=== PATIENT | male | born 1965 | race Two or more races ===

== ENCOUNTER 2019-04-14 07:26 | Emergency (ER) | payer OTHER ==
[2019-04-14 07:35] VITALS: PULSE 70; TEMP 97.6; BMI 31.7
[2019-04-14] MEDS ORDERED: ACETAMINOPHEN 1000 MG/100 ML VIAL (NON FORMULARY) IVPB ONE (08:26)
[2019-04-14] MEDS ORDERED: ACETAMINOPHEN INJECTION 100 ML IVPB ONE (08:26)
[2019-04-14] MEDS ORDERED: morphine CARPU-JECT 4 MG/1 ML DISP.SYRIN IVPUSH ONE (08:26)
[2019-04-14] MEDS ORDERED: SODIUM CHLORIDE 0.9% 1000 ML INFUS.BAG IV ONE (08:26)
[2019-04-14] MEDS ORDERED: morphine SULFATE 4 MG/ML VIAL ONE (08:26)
[2019-04-14] MEDS ORDERED: ONDANSETRON 4 MG/2 ML VIAL IVPUSH ONE (08:37)
[2019-04-14] MEDS ORDERED: ONDANSETRON 4 MG/2 ML VIAL ONE (08:38)
--- NOTE | 2019-04-14 08:43 | PDOC ---
History of Present Illness - General Chief Complaint: Pain, Acute Stated Complaint: ABD PAIN Time Seen by Provider: 04/14/19 08:42 Past History - Past Medical History Allergies/Adverse Reactions: Allergies Allergy/AdvReac Type Severity Reaction Status Date / Time No Known Allergies Allergy Verified 04/14/19 08:24 Home Medications: Ambulatory Orders Ibuprofen [Motrin -] 400 mg PO QID PRN #28 tablet 04/14/19 Oxycodone HCl/Acetaminophen [Percocet 5-325 mg Tablet -] 1 combo PO Q6H PRN #14 tablet MDD 4 04/14/19 Tamsulosin HCl [Flomax] 0.4 mg PO DAILY #7 capsule 04/14/19 COPD: No - Immunization History Immunization Up to Date: No - Psycho Social/Smoking Cessation Hx Smoking History: Never smoked Have you smoked in the past 12 months: No Information on smoking cessation initiated: No Hx Alcohol Use: No Drug/Substance Use Hx: No *Physical Exam - Vital Signs Last Vital Signs Temp Pulse Resp BP Pulse Ox 97.6 F 70 18 134/94 100 04/14/19 07:32 04/14/19 07:32 04/14/19 07:32 04/14/19 07:32 04/14/19 07:32 ED Treatment Course - LABORATORY CBC & Chemistry Diagram: 04/14/19 08:23 04/14/19 08:23 - Medications Given in the ED: ED Medications Discontinued Medications Generic Name Dose Route Start Last Admin Trade Name Freq PRN Reason Stop Dose Admin Acetaminophen 1,000 mg 04/14/19 08:26 04/14/19 08:41 Ofirmev Injection - IVPB 04/14/19 08:27 1,000 mg ONCE ONE Administration Morphine Sulfate 4 mg 04/14/19 08:26 04/14/19 08:41 Morphine Injection - IVPUSH 04/14/19 08:27 4 mg ONCE ONE Administration Ondansetron HCl 4 mg 04/14/19 08:37 04/14/19 08:41 Zofran Injection IVPUSH 04/14/19 08:38 4 mg ONCE ONE Administration Sodium Chloride 1,000 ml 04/14/19 08:26 04/14/19 08:41 Normal Saline - IV 04/14/19 08:27 1,000 ml ONCE ONE Administration Medical Decision Making - Medical Decision Making 04/14/19 10:38 HPI: 53yo M hx L-sided kidney stone (1yr ago, similar sx, passed on own) presents from home for gradual onset at 0500 waxing/waning squeezing-type RUQ pain radiating to R flank, worse with movement, no improvement with 0.5 tab acetaminophen at 0500 today, associated with NBNB emesis x3. LBM this AM, normal. Denies abdominal surgeries, travel, sick contacts, odd foods, hematuria , dysuria, urinary urgency/frequency, penile pain or discharge, testicular pain or swelling, hx gallstones, fever, chills, fatigue, headache, dizziness, numbness/tingling, weakness, vision changes, shortness of breath, cough, chest pain, palpitations, leg swelling, blood in stool, diarrhea, constipation, confusion. ROS: Constitutional: Negative for chills, fever, fatigue, diaphoresis. HENT: Negative for sore throat, rhinorrhea, congestion. Eyes: Negative for visual disturbance. Respiratory: Negative for shortness of breath, cough, and wheezing. Cardiovascular: Negative for chest pain, palpitations, and leg swelling. Gastrointestinal: Positive for abdominal pain, nausea, and vomiting. Negative for blood in stool, constipation, diarrhea. Genitourinary: Positive for flank pain. Negative for dysuria, and hematuria. Musculoskeletal: Negative for myalgias, back pain, and neck pain. Skin: Negative for rash. Neurological: Negative for light-headedness, dizziness, vertigo, syncope, weakness, numbness and headaches. Psychiatric/Behavioral: Negative for behavioral problems and confusion. PE: Gen: Alert, NAD, uncomfortable-appearing. HEENT: PERRL, EOMI, MMM, NCAT. No conjunctival pallor. Sclera are non-icteric. Oropharynx is clear. CV: Regular rate and rhythm. No murmurs, rubs, or gallops. PULM: No resp distress. CTAB, no wheezes, rales, or rhonchi. ABD: soft, ND, +RUQ TTP, no rebound tenderness or guarding, +R CVA tenderness. BACK: No TTP of c/t/l-spine. No step-offs or deformities. MSK: No bony deformities. 2+ pulses in all extremities. NEURO: AAOx3. PERRL. No gross CN deficits. Strength and sensation grossly intact throughout. EXTREMITIES: No cyanosis. No clubbing. No edema. No calf tenderness. PSYCH: Normal mood and thought pattern. SKIN: Warm and dry. Normal capillary refill. No rashes. No jaundice. MDM: 53yo M hx L-sided kidney stone (1yr ago, similar sx, passed on own) presents from home for gradual onset at 0500 waxing/waning squeezing-type RUQ pain radiating to R flank, worse with movement, no improvement with 0.5 tab acetaminophen at 0500 today, associated with NBNB emesis x3. Hemodynamically stable, afebrile, RUQ and R CVA tenderness. Ddx: kidney stone or infected kidney stone most likely. GB pathology ( cholelithiasis/cystitis, cholangitis) less likely due to presentation and hx stones - consider RUQ US if CT spiral negative. Also consider UTI/pyelo, metabolic derangement, ACS/SD, anemia. Very low concern for GI or testicular pathology at this time due to presentation consistency with renal pathology; if w/u equivocal, reassess and consider further imaging. -EKG: reviewed, NSR, 68bpm, LAD, VT interval 160ms, QTc 442ms, IRBBB, no e/o acute ischemia -Labs: reviewed, notable for K 3.1 --give Kdur 40 -CT spiral: reviewed, obstructing stone at R mid ureter level 4x3.5mm resulting in mild to moderate R ureter hydronephrosis and hydroureter down to level of stone. -IVF -Pain management -Dispo: pending w/u 04/14/19 14:30 UA negative for UTI Pain resolved s/p pain meds Pt informed of stone and discussed plan and return precautions. Will discharge home with urology and PCP f/u. Return precautions given. Pt understands all discharge instructions and all questions were answered. Discharge - Discharge Information Problems reviewed: Yes Clinical Impression/Diagnosis: Hypokalemia, Kidney stone on right side Condition: Improved Disposition: HOME - Admission No - Additional Discharge Information Prescriptions: Ibuprofen [Motrin -] 400 mg PO QID PRN #28 tablet PRN Reason: Pain Oxycodone HCl/Acetaminophen [Percocet 5-325 mg Tablet -] 1 combo PO Q6H PRN #14 tablet MDD 4 PRN Reason: Pain Tamsulosin HCl [Flomax] 0.4 mg PO DAILY #7 capsule - Follow up/Referral Referrals: Travis Peres MD [Staff Physician] - [facility] [Provider Group] - Patient Discharge Instructions Patient Printed Discharge Instructions: DI for Kidney Stones, DI for Hypokalemia Additional Instructions: Thelma laboratorios, exmenes y tomografas computarizadas muestran que tiene un pequeo clculo renal en el lado derecho. Las piedras de lyssa tamao generalmente pasan solas en la orina, aunque generalmente son dolorosas a medida que pasan. Debary ibuprofeno sinai se indica en la botella segn sea necesario para el dolor. Si kumar tomado el mximo de ibuprofeno radha da y todava tiene dolor, puede zurdo un percocet segn lo prescrito segn sea necesario. Tambin le hemos recetado Flomax para ayudar a orinar y pasar el clculo, tmelo sinai se lo recetaron. Le hemos derivado a un urlogo. Llame a araujo oficina para hacer kamron daniel para esta semana. Tambin le hemos derivado a kamron clnica de atencin primaria. Tiene bajo contenido de potasio (un electrolito) en thelma laboratorios. [place] no es kamron emergencia, shun araujo mdico de atencin primaria debe evaluarlo ms a fondo. Llame a la clnica para programar kamron daniel esta semana. Regrese al Departamento de Emergencias de inmediato por cualquier sntoma nuevo o preocupante, sinai empeoramiento del dolor, vmitos, fiebre o incapacidad para orinar. Your labs, exam, and CT scan show that you have a small right-sided kidney stone. Stones of this size usually pass on their own in the urine, though it is usually painful as it passes. Take ibuprofen as directed on the bottle as needed for pain. If you have taken the maximum ibuprofen that day and you still have pain, you can take a percocet as prescribed as needed. We have also prescribed you Flomax to help urinate and pass the stone - take as prescribed. We have given you a referral to a Urologist. Call their office to make an appointment for this week. We have also given you a referral to a primary care clinic. You have low potassium (an electrolyte) on your labs. This is not an emergency but should be further evaluated by your primary care doctor. Call the clinic to set up an appointment this week. Return to the Emergency Department immediately for any new or concerning symptoms including worsening pain, vomiting, fever, or inability to urinate. - Post Discharge Activity
[2019-04-14] MEDS ORDERED: KETOROLAC TROMETHAMINE 15 MG/ML VIAL IVPUSH ONE (08:59)
--- NOTE | 2019-04-14 09:09 | PDOC ---
Attending Attestation - Resident Resident Name: Shahla Langford - ED Attending Attestation I have performed the following: I have examined & evaluated the patient, The case was reviewed & discussed with the resident, I agree w/resident's findings & plan, Exceptions are as noted - HPI HPI: 04/14/19 09:14 53y M presents with R sided abdominal pain since this morning, patient notes that the pain is very severe is located in the right side rating down to the right groin associated with nausea and vomiting. The patient denies any other symptoms including fever, chills, dysuria, diarrhea, back pain, chest pain, shortness of breath. The patient does not recall having such severe pain in the past. The patient denies any explicit testicular tenderness. - Physicial Exam PE: 04/14/19 09:18 GENERAL: The patient is awake, alert, and fully oriented, appears to be very uncomfortable, writhing around HEAD: Normocephalic, atraumatic. EYES: extraocular movements intact, sclera anicteric, conjunctiva clear. ENT: Normal voice, Moist mucous membranes. NECK: Normal range of motion, supple LUNGS: Breath sounds equal, clear to auscultation bilaterally. No wheezes, no rhonchi, no rales. HEART: Regular rate and rhythm, normal S1 and S2 without murmur, rub or gallop. ABDOMEN: Soft, mild diffuse tenderness in the right abdomen (R mid abd to lower abd), no hernias appreciated, : No testicular tenderness or swelling, EXTREMITIES: Normal range of motion, no edema. NEUROLOGICAL: No facial assymetry, Normal speech, moving all 4 extremities spontaneously symmetrically PSYCH: Normal mood, normal affect. SKIN: Warm, Dry, normal turgor, - Medical Decision Making 04/14/19 09:19 Differential for the patient's symptoms includes but is not limited to kidney stone, appendicitis, cholecystitis Will obtain labs, urine Patient was given Tylenol and Toradol for pain, Zofran for nausea anticipate CT of abdomen 04/14/19 12:19 The patient's labs were reviewed potassium noted to be 3.1 will replete with oral potassium. The patient CT noted for a moderate sized kidney stone in the right ureter since that with the patient's location of pain. Will reassess the patient, also awaiting a UA to rule out UTI/infected stone 04/14/19 15:19 UA neg for infected stone pt was dc with outaptient urology fu return precautions were discusesed includnig persistent pain, fevers, vomiting or other concerns
[2019-04-14 09:12] LABS: BASO % 0.5 % (0-2.0); EOS % 1.3 % (0-4.5); HEMOGLOBIN 14.4 GM/dL (11.7-16.9); LYMPH % 13.4 % (8-40); MCH 28.1 pg (25.7-33.7); MCHC 34.2 g/dl (32.0-35.9); MEAN CELL VOLUME 82.2 fl (80-96); MEAN PLT VOLUME 9.5 fl (7.5-11.1); MONO % 4.8 % (3.8-10.2); PLATELET COUNT 245 K/MM3 (134-434); RBC 5.11 M/mm3 (4.00-5.60); RDW 13.3 % (11.9-15.9); WHITE BLOOD COUNT 13.7 K/mm3 (4.0-10.0)
[2019-04-14] MEDS ORDERED: SODIUM CHLORIDE 0.9% 500 ML INFUS.BAG IV ONE (09:24)
[2019-04-14] MEDS ORDERED: KETOROLAC TROMETHAMINE 15 MG/ML VIAL ONE (09:36)
[2019-04-14 09:37] LABS: ALBUMIN 4.2 g/dl (3.4-5.0); ALK PHOS 112 U/L (45-117); ANION GAP 11 MMOL/L (8-16); BILIRUBIN,TOTAL 0.3 mg/dL (0.2-1); BLOOD UREA NITROGEN 17.9 mg/dL (7-18); CALCIUM 9.4 mg/dL (8.5-10.1); CHLORIDE 108 mmol/L (98-107); CO2 21 mmol/L (21-32); CREATININE 1.2 mg/dL (0.55-1.3); GLUCOSE,RANDOM 118 mg/dL (74-106); POTASSIUM 3.1 mmol/L (3.5-5.1); SGOT/AST 25 U/L (15-37); SGPT/ALT 64 U/L (13-61); SODIUM 140 mmol/L (136-145); TOT PROT 7.8 g/dl (6.4-8.2)
--- NOTE | 2019-04-14 10:02 | EKG ---
Test Reason : Blood Pressure : / mmHG Vent. Rate : 068 BPM Atrial Rate : 068 BPM P-R Int : 160 ms QRS Dur : 112 ms QT Int : 416 ms P-R-T Axes : 015 -50 003 degrees QTc Int : 442 ms NORMAL SINUS RHYTHM LEFT AXIS DEVIATION INCOMPLETE RIGHT BUNDLE BRANCH BLOCK INFERIOR INFARCT , AGE UNDETERMINED ABNORMAL ECG NO PREVIOUS ECGS AVAILABLE Confirmed by Mary Schulz ([id number]) on 04/14/2019 10:02:25 AM Referred By: Confirmed By:Mary Schulz
[2019-04-14] MEDS ORDERED: POTASSIUM CHLORIDE TABS 20 MEQ TABLET.ER (FP) PO ONE ×2 (10:36→11:00)
[2019-04-14 13:25] LABS: EPI CELLS 4.1 /HPF (0-5/HPF); HYALINE CASTS 7 /lpf (0-8); PH,URINE 7.5 (5.0-8.0); URINE APPEARANCE CLEAR; URINE BACTERIA 0.5 /hpf (NEGATIVE); URINE BILIRUBIN NEGATIVE (NEGATIVE); URINE COLOR YELLOW; URINE GLUCOSE (UA) 1+ (NEGATIVE); URINE KETONE NEGATIVE (NEGATIVE); URINE LEUK ESTERASE NEGATIVE (NEGATIVE); URINE NITRITE NEGATIVE (NEGATIVE); URINE PROTEIN NEGATIVE (NEGATIVE); URINE RBC 70 /hpf (0-4); URINE UROBILINOGEN 0.2 mg/dL (0.2-1.0); URINE WBC 3 /hpf (0-5)
[2019-04-14 14:48] VITALS: BP 130/92
== END 2019-04-14 15:05 | disposition home or self-care (01) ==
LOC: JER 07:26
PROC: 3E033NZ Introduction of Analgesics, Hypnotics, Sedatives into Peripheral Vein, Percutaneous Approach (ICD-10-PCS; principal; 2019-04-14)
PROC: 3E0333Z Introduction of Anti-inflammatory into Peripheral Vein, Percutaneous Approach (ICD-10-PCS; 2019-04-14)
PROC: 3E033GC Introduction of Other Therapeutic Substance into Peripheral Vein, Percutaneous Approach (ICD-10-PCS; 2019-04-14)
PROC: 3E033NZ Introduction of Analgesics, Hypnotics, Sedatives into Peripheral Vein, Percutaneous Approach (ICD-10-PCS; 2019-04-14)
DX: N13.2 Hydronephrosis with renal and ureteral calculous obstruction (principal); E87.6 Hypokalemia; Z87.442 Personal history of urinary calculi
CPT/HCPCS: 36415; 74176-TC; 80053; 81003; 82550; 82553; 83690; 84484; 85025; 87086; 93005; 93010; 96374; 96375; 99285-25; J0131; J7030